=== PATIENT | female | born 1940 | race Caucasian/White ===

== ENCOUNTER 2018-11-28 09:42 | Inpatient (IN) ==
[2018-11-28] MEDS ORDERED: DILTIAZEM 50 MG/10 ML VIAL IV STA ×2 (10:04→10:24)
[2018-11-28] MEDS ORDERED: SODIUM CHLORIDE 0.9% 500 ML IV STA (10:04)
[2018-11-28 10:22] LABS: Basophils % 0.3 % (0.0-0.8); Eosinophils % 0.2 % (0.00-10.9); Hemoglobin 9.7 GM/DL (12.0-16.0); Immature Granulocytes % 0.7 %; Immature Granulocytes Absolute 0.08 #; Lymphocytes % 8.1 % (21.3-54.2); Mean Corpuscular HGB Conc 32.3 GM/DL (32-36); Mean Corpuscular Volume 97.1 FL (87-102); Mean Platelet Volume 9.4 FL (9.6-12.0); Monocytes % 8.7 % (1.7-12.7); Platelet Count 312 T/CUMM (130-400); Red Blood Count 3.09 MC/CUMM (3.8-5.5); Red Cell Distribution Width 12.5 % (9.3-17.3); White Blood Count 11.8 T/CUMM (4-12)
[2018-11-28 10:52] LABS: Albumin 3.6 G/DL (3.4-5.0); Bilirubin,Total 0.5 MG/DL (0.2-1.0); Calcium 9.2 MG/DL (8.5-10.1); Osmolality,Calculated 278.4 MOS/KG (273-304); Thyroid Stimulating Hormone 4.55 uIU/ml (0.358-3.74); Total Protein 6.9 G/DL (6.4-8.3)
[2018-11-28] MEDS ORDERED: ONDANSETRON 4 MG/2 ML VIAL IV PRN (10:52)
[2018-11-28] MEDS ORDERED: guaiFENesin/DM ER 600-30 MG TABLET PO PRN (10:52)
[2018-11-28] MEDS ORDERED: LACTULOSE 20 GM/30 ML UDCUP PO PRN (10:52)
[2018-11-28] MEDS ORDERED: DOCUSATE SODIUM 100 MG CAPSULE PO PRN (10:52)
[2018-11-28] MEDS ORDERED: MORPHINE 4 MG/1 ML VIAL IV PRN (10:52)
[2018-11-28] MEDS ORDERED: ZALEPLON 5 MG CAPSULE PO PRN (10:52)
[2018-11-28] MEDS ORDERED: diphenhydrAMINE CAP 25 MG CAPSULE PO PRN (10:52)
[2018-11-28] MEDS ORDERED: MAGNESIUM SULF RIDER 4 GM in PREMIX 1 EACH IV PRN (10:52)
[2018-11-28] MEDS ORDERED: PROMETHAZINE 25 MG TABLET PO PRN (10:52)
[2018-11-28] MEDS ORDERED: MAGNESIUM SULF RIDER 2 GM in PREMIX 1 EACH IV PRN (10:52)
[2018-11-28] MEDS ORDERED: SODIUM CHLORIDE 0.45% 1,000 ML IV SCH (11:00)
[2018-11-28] MEDS ORDERED: ASPIRIN 325 MG TABLET PO STA (11:03)
[2018-11-28] MEDS ORDERED: ENOXAPARIN 100 MG/ML SYRINGE SUBCUT STA (11:03)
[2018-11-28] MEDS: dilTIAZem Drip 125 MG/125 ML PREMIX IV SCH (11:59)
[2018-11-28] MEDS ORDERED: hydrALAZINE 20 MG/1 ML VIAL IV PRN (12:09)
[2018-11-28 12:26] LABS: Apearance,Urine CLEAR (Clear); Bacteria,Urine Many /HPF (Few); Bilirubin,Urine Negative (Negative); Blood, Urine Negative (Negative); Glucose,Urine (UA) Negative (Negative); Ketones,Urine 5 mg/dL (Negative); Mucus,Urine Occasional /LPF (Occasional); Nitrite,Urine Negative (Negative); Protein,Urine Negative; RBC,Urine 3 /HPF (0-4); Squamous Epithelial Cell,Urine Occasional /HPF (0-10); Urine Color Yellow (Yellow); Urine Urobilinogen < 2.0 EU/DL (0.2-1.0); WBC,Urine 3 /HPF (0-6)
[2018-11-28 12:27] LABS: Barbiturates Screen,Urine Negative (Negative); Benzodiazepines Screen,Urine Negative (Negative); Cannabinoid Screen,Urine Negative (Negative); Opiate Screen,Urine Negative (Negative); Phencyclidine Screen,Urine Negative (Negative)
[2018-11-28] MEDS ORDERED: FUROSEMIDE 40 MG/4 ML VIAL IV ONE (13:11)
[2018-11-28] MEDS: METOPROLOL SUCCINATE XL 50 MG TABLET PO SCH (14:01)
[2018-11-28 14:34] LABS: CKMB % 6.8 %
[2018-11-28 14:36] LABS: Troponin I 2.12 NG/ML (0.00-0.045)
[2018-11-28] MEDS: cloNIDine 0.1 MG TABLET PO SCH ×2 (16:17→21:36)
[2018-11-28] MEDS: INSULIN LISPRO 100 UNIT/ML SUBCUT SCH ×2 (17:53→21:40)
[2018-11-28] MEDS: RIVAROXABAN 10 MG TABLET PO SCH (17:54)
[2018-11-28] MEDS ORDERED: CRANBERRY 500 MG PO SCH (21:00)
[2018-11-28] MEDS: DOXEPIN 10 MG CAPSULE PO SCH (21:37)
[2018-11-28] MEDS: MAGNESIUM GLUCONATE 500 MG TABLET PO SCH (21:38)
[2018-11-29 05:02] LABS: Basophils % 0.6 % (0.0-0.8); Eosinophils # 0.1 10*3/uL (0.0-0.87); Eosinophils % 1.3 % (0.00-10.9); Hemoglobin 8.4 GM/DL (12.0-16.0); Immature Granulocytes % 0.3 %; Immature Granulocytes Absolute 0.02 #; Lymphocytes % 28.6 % (21.3-54.2); Mean Corpuscular HGB Conc 33.6 GM/DL (32-36); Mean Corpuscular Volume 95.4 FL (87-102); Monocytes % 11.6 % (1.7-12.7); Neutrophils % 57.6 % (38.7-73.9); Platelet Count 258 T/CUMM (130-400); Red Blood Count 2.62 MC/CUMM (3.8-5.5); Red Cell Distribution Width 12.6 % (9.3-17.3); White Blood Count 6.8 T/CUMM (4-12)
[2018-11-29 05:34] LABS: Calcium 8.4 MG/DL (8.5-10.1)
[2018-11-29] MEDS: POTASSIUM CHLORIDE 20 MEQ TABLET PO PRN (06:32)
[2018-11-29] MEDS ORDERED: POTASSIUM CHLORIDE 20 MEQ TABLET PO ONE (08:37)
[2018-11-29] MEDS: INSULIN LISPRO 100 UNIT/ML SUBCUT SCH ×3 (08:43→16:39)
[2018-11-29] MEDS ORDERED: BIOTIN 10000 MCG PO SCH (09:00)
[2018-11-29] MEDS: cloNIDine 0.1 MG TABLET PO SCH ×2 (09:12→16:39)
[2018-11-29] MEDS: LORATADINE 10 MG TABLET PO SCH (09:12)
[2018-11-29] MEDS: DILTIAZEM CD 120 MG CAPSULE PO SCH (09:12)
[2018-11-29] MEDS: METOPROLOL SUCCINATE XL 50 MG TABLET PO SCH (09:13)
[2018-11-29] MEDS: CHOLECALCIFEROL 1,000 UNIT TABLET PO SCH (09:13)
[2018-11-29] MEDS: PANTOPRAZOLE 40 MG TABLET PO SCH ×2 (09:13)
[2018-11-29] MEDS: MAGNESIUM GLUCONATE 500 MG TABLET PO SCH ×2 (09:13→21:48)
[2018-11-29] MEDS: dilTIAZem Drip 125 MG/125 ML PREMIX IV SCH (12:25)
[2018-11-29] MEDS: RIVAROXABAN 10 MG TABLET PO SCH (16:39)
[2018-11-29] MEDS: ASCORBIC ACID 500 MG TABLET PO SCH (21:47)
[2018-11-29] MEDS: DOXEPIN 10 MG CAPSULE PO SCH (21:47)
[2018-11-30] MEDS: INSULIN LISPRO 100 UNIT/ML SUBCUT SCH ×2 (02:16→09:13)
[2018-11-30 04:46] LABS: Calcium 8.8 MG/DL (8.5-10.1); Osmolality,Calculated 278.1 MOS/KG (273-304)
[2018-11-30 08:15] VITALS: BP 109/55
[2018-11-30] MEDS ORDERED: cloNIDine 0.1 MG TABLET PO SCH (09:00)
[2018-11-30] MEDS: ASCORBIC ACID 500 MG TABLET PO SCH (09:14)
[2018-11-30] MEDS: LORATADINE 10 MG TABLET PO SCH (09:15)
[2018-11-30] MEDS: PANTOPRAZOLE 40 MG TABLET PO SCH ×2 (09:15→09:16)
[2018-11-30] MEDS: MAGNESIUM GLUCONATE 500 MG TABLET PO SCH (09:15)
[2018-11-30] MEDS: METOPROLOL SUCCINATE XL 50 MG TABLET PO SCH (09:15)
[2018-11-30] MEDS: DILTIAZEM CD 120 MG CAPSULE PO SCH (09:15)
[2018-11-30] MEDS: CHOLECALCIFEROL 1,000 UNIT TABLET PO SCH (09:15)
[2018-11-30] MEDS: POTASSIUM CHLORIDE 20 MEQ TABLET PO PRN (09:15)
== END 2018-11-30 11:07 | disposition home or self-care (01) ==
LOC: N.ED 09:42 → N.EDINP 10:52 → N.TELES 13:20
PROVIDERS: ADMIT Internal Medicine Cardiovascular Disease; ATTEND Internal Medicine Cardiovascular Disease

== ENCOUNTER 2018-12-02 05:19 | Inpatient (IN) ==
[2018-12-02 05:49] LABS: Basophils # 0.1 10*3/uL (0.0-0.2); Basophils % 0.6 % (0.0-0.8); Eosinophils % 0.3 % (0.00-10.9); Hematocrit 29.4 VOL% (35.7-47.0); Hemoglobin 9.7 GM/DL (12.0-16.0); Immature Granulocytes % 0.6 %; Immature Granulocytes Absolute 0.07 #; Lymphocytes % 9.2 % (21.3-54.2); Mean Corpuscular Volume 95.5 FL (87-102); Mean Platelet Volume 9.4 FL (9.6-12.0); Monocytes % 7.9 % (1.7-12.7); Neutrophils % 81.4 % (38.7-73.9); Platelet Count 287 T/CUMM (130-400); Red Blood Count 3.08 MC/CUMM (3.8-5.5); Red Cell Distribution Width 12.6 % (9.3-17.3); White Blood Count 11.3 T/CUMM (4-12)
[2018-12-02] MEDS ORDERED: METOPROLOL TARTRATE 5 MG/5 ML VIAL IV STA (05:56)
[2018-12-02 06:42] LABS: Albumin 4.1 G/DL (3.4-5.0); Bilirubin,Total 0.4 MG/DL (0.2-1.0); Calcium 9.7 MG/DL (8.5-10.1); Osmolality,Calculated 277.5 MOS/KG (273-304)
[2018-12-02] MEDS ORDERED: FUROSEMIDE 40 MG/4 ML VIAL IV STA (07:07)
[2018-12-02] MEDS ORDERED: MORPHINE 4 MG/1 ML VIAL IV PRN (07:11)
[2018-12-02] MEDS ORDERED: MAGNESIUM SULF RIDER 4 GM in PREMIX 1 EACH IV PRN (07:11)
[2018-12-02] MEDS ORDERED: MAGNESIUM SULF RIDER 2 GM in PREMIX 1 EACH IV PRN (07:11)
[2018-12-02] MEDS ORDERED: NITROGLYCERIN SL 0.4 MG TABLET SL PRN (07:14)
[2018-12-02 08:20] LABS: Risk Ratio 2.2; VLDL CHOLESTEROL 13.6 MG/DL
[2018-12-02] MEDS ORDERED: BIOTIN 10000 MCG PO SCH (09:00)
[2018-12-02] MEDS ORDERED: DILTIAZEM CD 120 MG CAPSULE PO SCH ×2 (09:00→21:00)
[2018-12-02] MEDS ORDERED: METOPROLOL SUCCINATE XL 50 MG TABLET PO SCH (09:00)
[2018-12-02] MEDS ORDERED: CRANBERRY 500 MG PO SCH (09:00)
[2018-12-02] MEDS ORDERED: FUROSEMIDE 40 MG/4 ML VIAL IV SCH (09:00)
[2018-12-02] MEDS ORDERED: PANTOPRAZOLE 40 MG TABLET PO SCH (09:00)
[2018-12-02] MEDS: CHOLECALCIFEROL 1,000 UNIT TABLET PO SCH (09:01)
[2018-12-02] MEDS: ASCORBIC ACID 500 MG TABLET PO SCH ×2 (09:01→20:30)
[2018-12-02] MEDS: MAGNESIUM GLUCONATE 500 MG TABLET PO SCH ×2 (09:02→20:31)
[2018-12-02] MEDS: cloNIDine 0.1 MG TABLET PO SCH (09:02)
[2018-12-02] MEDS: LORATADINE 10 MG TABLET PO SCH (09:02)
[2018-12-02 09:23] LABS: Apearance,Urine CLEAR (Clear); Bacteria,Urine Many /HPF (Few); Bilirubin,Urine Negative (Negative); Blood, Urine Negative (Negative); Glucose,Urine (UA) Negative (Negative); Ketones,Urine Negative (Negative); Mucus,Urine Occasional /LPF (Occasional); Nitrite,Urine Negative (Negative); Protein,Urine Negative; RBC,Urine 2 /HPF (0-4); Squamous Epithelial Cell,Urine Occasional /HPF (0-10); Urine Color Colorless (Yellow); Urine Specific Gravity 1.003 (1.001-1.035); Urine Urobilinogen < 2.0 EU/DL (0.2-1.0); WBC,Urine 4 /HPF (0-6)
[2018-12-02] MEDS ORDERED: ASPIRIN CHEW 81 MG TABLET PO ONE (11:39)
[2018-12-02] MEDS ORDERED: METOPROLOL TARTRATE 50 MG TABLET PO ONE (11:46)
[2018-12-02] MEDS: PANTOPRAZOLE 40 MG TABLET PO SCH (11:52)
[2018-12-02] MEDS: ISOSORBIDE MONONITRATE 30 MG TABLET PO SCH (11:55)
[2018-12-02] MEDS ORDERED: AMIODARONE INJ 450 MG in DEXTROSE 5% 241 ML IV SCH ×2 (12:00→18:00)
[2018-12-02] MEDS: FUROSEMIDE 40 MG/4 ML VIAL IV SCH (15:25)
[2018-12-02] MEDS ORDERED: RIVAROXABAN 10 MG TABLET PO SCH (17:00)
[2018-12-02] MEDS: POTASSIUM CHLORIDE 20 MEQ TABLET PO PRN ×2 (19:28→21:50)
[2018-12-02] MEDS: METOPROLOL SUCCINATE XL 50 MG TABLET PO SCH (20:30)
[2018-12-02] MEDS: ROSUVASTATIN 10 MG TABLET PO SCH (20:30)
[2018-12-02] MEDS: ENOXAPARIN 80 MG/0.8 ML SYRINGE SUBCUT SCH (20:31)
[2018-12-02] MEDS ORDERED: DOXEPIN 10 MG CAPSULE PO SCH (21:00)
[2018-12-02] MEDS: AMIODARONE INJ 450 MG in DEXTROSE 5% 241 ML IV SCH (23:12)
[2018-12-03 05:55] LABS: Calcium 9.2 MG/DL (8.5-10.1); Osmolality,Calculated 272.7 MOS/KG (273-304)
[2018-12-03] MEDS: POTASSIUM CHLORIDE 20 MEQ TABLET PO PRN (06:41)
[2018-12-03] MEDS ORDERED: POTASSIUM CHLORIDE 20 MEQ TABLET PO ONE ×2 (08:29→12:00)
[2018-12-03] MEDS: LORATADINE 10 MG TABLET PO SCH (09:15)
[2018-12-03] MEDS: ASCORBIC ACID 500 MG TABLET PO SCH ×2 (09:15→22:46)
[2018-12-03] MEDS: ASPIRIN EC 81 MG TABLET PO SCH (09:15)
[2018-12-03] MEDS: METOPROLOL SUCCINATE XL 50 MG TABLET PO SCH ×2 (09:15→22:46)
[2018-12-03] MEDS: CHOLECALCIFEROL 1,000 UNIT TABLET PO SCH (09:15)
[2018-12-03] MEDS: cloNIDine 0.1 MG TABLET PO SCH (09:16)
[2018-12-03] MEDS: PANTOPRAZOLE 40 MG TABLET PO SCH (09:16)
[2018-12-03] MEDS: MAGNESIUM GLUCONATE 500 MG TABLET PO SCH ×2 (09:16→22:47)
[2018-12-03] MEDS: ISOSORBIDE MONONITRATE 30 MG TABLET PO SCH (09:16)
[2018-12-03] MEDS: DILTIAZEM CD 120 MG CAPSULE PO SCH (09:16)
[2018-12-03] MEDS: cefTRIAXone 1,000 MG in SYRINGE 1 EACH IV SCH (09:38)
[2018-12-03] MEDS: FUROSEMIDE 40 MG/4 ML VIAL IV SCH ×2 (10:36→16:06)
[2018-12-03] MEDS: AMIODARONE INJ 450 MG in DEXTROSE 5% 241 ML IV SCH (15:48)
[2018-12-03] MEDS ORDERED: GLUCAGON 1 MG VIAL IM PRN (21:21)
[2018-12-03] MEDS ORDERED: DEXTROSE 50% 25 GM/50 ML VIAL IV PRN (21:21)
[2018-12-03] MEDS: ROSUVASTATIN 10 MG TABLET PO SCH (22:45)
[2018-12-03] MEDS: ENOXAPARIN 80 MG/0.8 ML SYRINGE SUBCUT SCH (23:02)
[2018-12-03] MEDS: INSULIN REGULAR 100 UNIT/ML SUBCUT SCH (23:20)
[2018-12-03] MEDS: ZALEPLON 5 MG CAPSULE PO PRN (23:23)
[2018-12-04] MEDS: ZALEPLON 5 MG CAPSULE PO PRN ×2 (01:48→23:16)
[2018-12-04 04:43] LABS: Basophils # 0.1 10*3/uL (0.0-0.2); Basophils % 0.5 % (0.0-0.8); Eosinophils # 0.1 10*3/uL (0.0-0.87); Eosinophils % 1.3 % (0.00-10.9); Hematocrit 25.6 VOL% (35.7-47.0); Hemoglobin 8.4 GM/DL (12.0-16.0); Immature Granulocytes % 0.7 %; Immature Granulocytes Absolute 0.07 #; Lymphocytes # 1.6 10*3/uL (1.4-4.0); Lymphocytes % 15.1 % (21.3-54.2); Mean Corpuscular HGB Conc 32.8 GM/DL (32-36); Mean Corpuscular Volume 95.9 FL (87-102); Mean Platelet Volume 10.1 FL (9.6-12.0); Monocytes % 10.9 % (1.7-12.7); Neutrophils % 71.5 % (38.7-73.9); Platelet Count 250 T/CUMM (130-400); Red Blood Count 2.67 MC/CUMM (3.8-5.5); Red Cell Distribution Width 12.9 % (9.3-17.3); White Blood Count 10.3 T/CUMM (4-12)
[2018-12-04 04:54] LABS: Calcium 8.4 MG/DL (8.5-10.1); Osmolality,Calculated 272.8 MOS/KG (273-304)
[2018-12-04 04:59] LABS: INR 1.3; PT Patient Result 13.7 SECS
[2018-12-04] MEDS: AMIODARONE INJ 450 MG in DEXTROSE 5% 241 ML IV SCH (07:36)
[2018-12-04] MEDS: POTASSIUM CHLORIDE 20 MEQ TABLET PO PRN (07:37)
[2018-12-04] MEDS ORDERED: diphenhydrAMINE CAP 25 MG CAPSULE PO ONE (07:52)
[2018-12-04] MEDS ORDERED: POTASSIUM CHLORIDE RIDER 10 MEQ in PREMIX 1 EACH IV PRN (07:52)
[2018-12-04] MEDS ORDERED: MAGNESIUM SULF RIDER 2 GM in PREMIX 1 EACH IV PRN (07:52)
[2018-12-04] MEDS ORDERED: DIAZEPAM 5 MG TABLET PO ONE (07:52)
[2018-12-04] MEDS ORDERED: POTASSIUM CHLORIDE 20 MEQ TABLET PO ONE (08:03)
[2018-12-04] MEDS: CHOLECALCIFEROL 1,000 UNIT TABLET PO SCH (09:47)
[2018-12-04] MEDS: ASPIRIN EC 81 MG TABLET PO SCH (09:47)
[2018-12-04] MEDS: MAGNESIUM GLUCONATE 500 MG TABLET PO SCH ×2 (09:47→23:15)
[2018-12-04] MEDS: ISOSORBIDE MONONITRATE 30 MG TABLET PO SCH (09:48)
[2018-12-04] MEDS: DILTIAZEM CD 120 MG CAPSULE PO SCH (09:48)
[2018-12-04] MEDS: AMIODARONE 200 MG TABLET PO SCH ×2 (09:48→23:12)
[2018-12-04] MEDS: PANTOPRAZOLE 40 MG TABLET PO SCH (09:48)
[2018-12-04] MEDS: ASCORBIC ACID 500 MG TABLET PO SCH ×2 (09:48→23:10)
[2018-12-04] MEDS: cloNIDine 0.1 MG TABLET PO SCH (09:49)
[2018-12-04] MEDS: INSULIN REGULAR 100 UNIT/ML SUBCUT SCH ×4 (09:49→23:36)
[2018-12-04] MEDS: LORATADINE 10 MG TABLET PO SCH (09:49)
[2018-12-04] MEDS: METOPROLOL SUCCINATE XL 50 MG TABLET PO SCH ×2 (09:49→23:13)
[2018-12-04] MEDS: FUROSEMIDE 40 MG/4 ML VIAL IV SCH ×2 (10:06→15:43)
[2018-12-04] MEDS: SODIUM CHLORIDE 0.9% 1,000 ML IV SCH (10:06)
[2018-12-04] MEDS: cefTRIAXone 1,000 MG in SYRINGE 1 EACH IV SCH (10:07)
[2018-12-04] MEDS ORDERED: diphenhydrAMINE CAP 25 MG CAPSULE ONE (15:38)
[2018-12-04] MEDS ORDERED: DIAZEPAM 5 MG TABLET ONE (15:38)
[2018-12-04] MEDS ORDERED: HEPARIN/NACL 0.9% 2 UNITS/ML 500 ML IV ONE ×2 (16:03→16:15)
[2018-12-04] MEDS ORDERED: LIDOCAINE 1% 20 ML VIAL ONE (16:15)
[2018-12-04] MEDS ORDERED: MIDAZOLAM 2 MG/2 ML VIAL ONE (16:19)
[2018-12-04] MEDS ORDERED: HYDROmorphone 2 MG/1 ML VIAL ONE (16:19)
[2018-12-04] MEDS: ONDANSETRON 4 MG/2 ML VIAL IV PRN (19:39)
[2018-12-04] MEDS: ROSUVASTATIN 10 MG TABLET PO SCH (23:12)
[2018-12-04] MEDS: ENOXAPARIN 80 MG/0.8 ML SYRINGE SUBCUT SCH (23:41)
[2018-12-05 05:29] LABS: Calcium 8.4 MG/DL (8.5-10.1); Osmolality,Calculated 271.5 MOS/KG (273-304)
[2018-12-05] MEDS: SODIUM CHLORIDE 0.9% 1,000 ML IV SCH ×2 (07:01→13:15)
[2018-12-05] MEDS: INSULIN REGULAR 100 UNIT/ML SUBCUT SCH ×4 (08:39→21:08)
[2018-12-05] MEDS: CHOLECALCIFEROL 1,000 UNIT TABLET PO SCH (09:06)
[2018-12-05] MEDS: POTASSIUM CHLORIDE 20 MEQ TABLET PO SCH ×2 (09:07→21:10)
[2018-12-05] MEDS: cefTRIAXone 1,000 MG in SYRINGE 1 EACH IV SCH (09:07)
[2018-12-05] MEDS: LORATADINE 10 MG TABLET PO SCH (09:07)
[2018-12-05] MEDS: AMIODARONE 200 MG TABLET PO SCH ×2 (09:07→21:10)
[2018-12-05] MEDS: MAGNESIUM GLUCONATE 500 MG TABLET PO SCH ×2 (09:07→21:09)
[2018-12-05] MEDS: DILTIAZEM CD 120 MG CAPSULE PO SCH (09:08)
[2018-12-05] MEDS: PANTOPRAZOLE 40 MG TABLET PO SCH (09:08)
[2018-12-05] MEDS: ASCORBIC ACID 500 MG TABLET PO SCH ×2 (09:08→21:09)
[2018-12-05] MEDS: METOPROLOL SUCCINATE XL 50 MG TABLET PO SCH ×2 (09:09→21:09)
[2018-12-05] MEDS: ASPIRIN EC 81 MG TABLET PO SCH (09:10)
[2018-12-05] MEDS: FUROSEMIDE 40 MG TABLET PO SCH ×2 (09:10→16:27)
[2018-12-05] MEDS: diphenhydrAMINE CAP 50 MG CAPSULE PO SCH (21:09)
[2018-12-05] MEDS: ROSUVASTATIN 10 MG TABLET PO SCH (21:10)
[2018-12-06] MEDS: SODIUM CHLORIDE 0.9% 1,000 ML IV SCH ×2 (00:43→16:41)
[2018-12-06 03:52] LABS: Calcium 8.8 MG/DL (8.5-10.1); Osmolality,Calculated 277.5 MOS/KG (273-304)
[2018-12-06] MEDS: INSULIN REGULAR 100 UNIT/ML SUBCUT SCH ×4 (09:07→21:43)
[2018-12-06] MEDS: FUROSEMIDE 40 MG TABLET PO SCH ×2 (09:09→16:41)
[2018-12-06] MEDS: MAGNESIUM GLUCONATE 500 MG TABLET PO SCH ×2 (09:09→21:30)
[2018-12-06] MEDS: PANTOPRAZOLE 40 MG TABLET PO SCH (09:09)
[2018-12-06] MEDS: CHOLECALCIFEROL 1,000 UNIT TABLET PO SCH (09:09)
[2018-12-06] MEDS ORDERED: AMIODARONE INJ 150 MG in DEXTROSE 5% 100 ML IV ONE (09:09)
[2018-12-06] MEDS: ASCORBIC ACID 500 MG TABLET PO SCH ×2 (09:10→21:30)
[2018-12-06] MEDS: AMIODARONE 200 MG TABLET PO SCH (09:10)
[2018-12-06] MEDS: METOPROLOL SUCCINATE XL 50 MG TABLET PO SCH ×2 (09:10→21:30)
[2018-12-06] MEDS: ASPIRIN EC 81 MG TABLET PO SCH (09:10)
[2018-12-06] MEDS: LORATADINE 10 MG TABLET PO SCH (09:10)
[2018-12-06] MEDS ORDERED: POTASSIUM CHLORIDE 20 MEQ TABLET PO ONE (09:11)
[2018-12-06] MEDS: cefTRIAXone 1,000 MG in SYRINGE 1 EACH IV SCH (09:11)
[2018-12-06] MEDS: DILTIAZEM CD 120 MG CAPSULE PO SCH (09:11)
[2018-12-06] MEDS: POTASSIUM CHLORIDE 20 MEQ TABLET PO SCH ×2 (09:11→21:29)
[2018-12-06] MEDS ORDERED: AMIODARONE INJ 450 MG in DEXTROSE 5% 241 ML IV SCH (09:30)
[2018-12-06] MEDS: RIVAROXABAN 10 MG TABLET PO SCH (10:06)
[2018-12-06] MEDS: ONDANSETRON 4 MG/2 ML VIAL IV PRN (12:35)
[2018-12-06] MEDS: AMIODARONE INJ 450 MG in DEXTROSE 5% 241 ML IV SCH (16:58)
[2018-12-06] MEDS: diphenhydrAMINE CAP 50 MG CAPSULE PO SCH (21:30)
[2018-12-06] MEDS: ROSUVASTATIN 10 MG TABLET PO SCH (21:30)
[2018-12-07] MEDS: ZALEPLON 5 MG CAPSULE PO PRN (00:01)
[2018-12-07] MEDS: ONDANSETRON 4 MG/2 ML VIAL IV PRN ×2 (00:03→09:46)
[2018-12-07] MEDS: SODIUM CHLORIDE 0.9% 1,000 ML IV SCH ×2 (03:23→17:20)
[2018-12-07 08:31] LABS: Calcium 8.9 MG/DL (8.5-10.1); Osmolality,Calculated 267.5 MOS/KG (273-304)
[2018-12-07] MEDS: INSULIN REGULAR 100 UNIT/ML SUBCUT SCH ×4 (09:33→21:06)
[2018-12-07] MEDS: MAGNESIUM GLUCONATE 500 MG TABLET PO SCH ×2 (09:35→21:05)
[2018-12-07] MEDS: CHOLECALCIFEROL 1,000 UNIT TABLET PO SCH (09:35)
[2018-12-07] MEDS: ASPIRIN EC 81 MG TABLET PO SCH (09:36)
[2018-12-07] MEDS: DILTIAZEM CD 120 MG CAPSULE PO SCH ×2 (09:36→21:07)
[2018-12-07] MEDS: POTASSIUM CHLORIDE 20 MEQ TABLET PO SCH ×2 (09:36→21:05)
[2018-12-07] MEDS: METOPROLOL SUCCINATE XL 50 MG TABLET PO SCH ×2 (09:37→21:06)
[2018-12-07] MEDS: ASCORBIC ACID 500 MG TABLET PO SCH ×2 (09:37→21:05)
[2018-12-07] MEDS: RIVAROXABAN 10 MG TABLET PO SCH (09:37)
[2018-12-07] MEDS: PANTOPRAZOLE 40 MG TABLET PO SCH (09:37)
[2018-12-07] MEDS: cefTRIAXone 1,000 MG in SYRINGE 1 EACH IV SCH (09:37)
[2018-12-07] MEDS: FUROSEMIDE 40 MG TABLET PO SCH ×2 (09:37→17:22)
[2018-12-07] MEDS: LORATADINE 10 MG TABLET PO SCH (09:37)
[2018-12-07] MEDS: AMIODARONE INJ 450 MG in DEXTROSE 5% 241 ML IV SCH (09:57)
[2018-12-07] MEDS: clonazePAM 0.5 MG TABLET PO PRN (15:57)
[2018-12-07] MEDS: SERTRALINE 25 MG TABLET PO SCH (21:05)
[2018-12-07] MEDS: ROSUVASTATIN 10 MG TABLET PO SCH (21:11)
[2018-12-08 05:08] LABS: Basophils % 0.4 % (0.0-0.8); Eosinophils # 0.2 10*3/uL (0.0-0.87); Eosinophils % 1.9 % (0.00-10.9); Hematocrit 24.4 VOL% (35.7-47.0); Hemoglobin 8.3 GM/DL (12.0-16.0); Immature Granulocytes % 1.1 %; Immature Granulocytes Absolute 0.12 #; Lymphocytes # 1.4 10*3/uL (1.4-4.0); Mean Corpuscular Volume 93.5 FL (87-102); Mean Platelet Volume 10.4 FL (9.6-12.0); Monocytes % 9.4 % (1.7-12.7); Neutrophils % 74.2 % (38.7-73.9); Platelet Count 216 T/CUMM (130-400); Red Blood Count 2.61 MC/CUMM (3.8-5.5); White Blood Count 10.6 T/CUMM (4-12)
[2018-12-08 05:26] LABS: Calcium 8.6 MG/DL (8.5-10.1); Osmolality,Calculated 267.2 MOS/KG (273-304)
[2018-12-08] MEDS: POTASSIUM CHLORIDE 20 MEQ TABLET PO PRN (05:30)
[2018-12-08] MEDS: INSULIN REGULAR 100 UNIT/ML SUBCUT SCH ×4 (09:20→21:55)
[2018-12-08] MEDS: CHOLECALCIFEROL 1,000 UNIT TABLET PO SCH (09:21)
[2018-12-08] MEDS: MAGNESIUM GLUCONATE 500 MG TABLET PO SCH ×2 (09:21→21:43)
[2018-12-08] MEDS: METOPROLOL SUCCINATE XL 50 MG TABLET PO SCH ×2 (09:22→22:17)
[2018-12-08] MEDS: FUROSEMIDE 40 MG TABLET PO SCH (09:22)
[2018-12-08] MEDS: ASCORBIC ACID 500 MG TABLET PO SCH ×2 (09:22→21:49)
[2018-12-08] MEDS: ASPIRIN EC 81 MG TABLET PO SCH (09:22)
[2018-12-08] MEDS: LORATADINE 10 MG TABLET PO SCH (09:22)
[2018-12-08] MEDS: PANTOPRAZOLE 40 MG TABLET PO SCH (09:23)
[2018-12-08] MEDS: RIVAROXABAN 10 MG TABLET PO SCH (09:23)
[2018-12-08] MEDS: DILTIAZEM CD 120 MG CAPSULE PO SCH ×2 (09:23→21:49)
[2018-12-08] MEDS: POTASSIUM CHLORIDE 20 MEQ TABLET PO SCH ×2 (09:24→21:51)
[2018-12-08] MEDS: cefTRIAXone 1,000 MG in SYRINGE 1 EACH IV SCH (09:27)
[2018-12-08] MEDS: ROSUVASTATIN 10 MG TABLET PO SCH (21:42)
[2018-12-08] MEDS: SERTRALINE 25 MG TABLET PO SCH (21:44)
[2018-12-08] MEDS: clonazePAM 0.5 MG TABLET PO PRN (21:48)
[2018-12-09] MEDS: INSULIN REGULAR 100 UNIT/ML SUBCUT SCH ×2 (08:45→12:09)
[2018-12-09] MEDS ORDERED: LEVOFLOXACIN 500 MG TABLET PO ONE (09:00)
[2018-12-09] MEDS ORDERED: MAGNESIUM GLUCONATE 500 MG TABLET PO SCH (09:00)
[2018-12-09] MEDS ORDERED: FUROSEMIDE 20 MG TABLET PO SCH (09:00)
[2018-12-09] MEDS: PANTOPRAZOLE 40 MG TABLET PO SCH (09:55)
[2018-12-09] MEDS: CHOLECALCIFEROL 1,000 UNIT TABLET PO SCH (09:57)
[2018-12-09] MEDS: METOPROLOL SUCCINATE XL 50 MG TABLET PO SCH (09:58)
[2018-12-09] MEDS: DILTIAZEM CD 120 MG CAPSULE PO SCH (09:58)
[2018-12-09] MEDS: ASCORBIC ACID 500 MG TABLET PO SCH (10:04)
[2018-12-09] MEDS: RIVAROXABAN 10 MG TABLET PO SCH (10:05)
[2018-12-09] MEDS: LORATADINE 10 MG TABLET PO SCH (10:06)
[2018-12-09] MEDS: ASPIRIN EC 81 MG TABLET PO SCH (10:06)
[2018-12-09] MEDS: POTASSIUM CHLORIDE 20 MEQ TABLET PO SCH (10:21)
[2018-12-09 12:33] VITALS: BP 148/68
== END 2018-12-09 14:20 | disposition home or self-care (01) | DRG 286 ==
LOC: N.ED 05:19 → N.EDINP 07:11 → N.TELEN 07:28
PROVIDERS: ADMIT Internal Medicine Cardiovascular Disease; ATTEND Internal Medicine Cardiovascular Disease
PROC: CLCCHCL (ICD-10-PCS; 2018-12-04 16:15)